=== PATIENT | female | born 1970 | race Asian ===

== ENCOUNTER 2020-03-13 03:43 | Emergency (ER) | payer SELFPAY ==
[~2020-03-13] VITALS: Ht 157.5 cm; Wt 63.5 kg
[2020-03-13 03:45] VITALS: BP 165/93
--- NOTE | 2020-03-13 03:50 | Emergency Room Report ---
History of Present Illness General Chief Complaint: Abdominal Pain Source: Patient Present Illness HPI Disclaimer: Please note that this report is being documented using [employer] technology. This can lead to erroneous entry secondary to incorrect interpretation by the dictating instrument. HPI: 49-year-old female with history of hyperthyroidism status post thyroidectomy presents for evaluation of epigastric pain. Patient is primarily Y[place] speaking and history and physical were performed with the use of an presser and blocker knitted goods. States she ate some [place] food last night after which she developed abdominal discomfort that intensified through the evening and early this morning. Now currently 04/13. Denies nausea, vomiting, diarrhea. Denies fever, chills, chest pain, shortness of breath, cough. Denies history of abdominal surgery. Denies prior history of gallbladder stones, pancreatic disease, alcohol use or drug use. PMH: Hyperthyroidism status post thyroidectomy PSH: Thyroidectomy Allergies: Denies Social Hx: Denies Allergies: Coded Allergies: No Known Allergies (Unverified , 03/13/20) COVID-19 Screening Contact w/high risk pt: No Experienced COVID-19 symptoms?: No COVID-19 Testing performed CERTIFIED REAL ESTATE APPRAISER: No Patient History Now: No Nursing Documentation-PMH Past Medical History: No Stated History Hx Neurological Problems: Yes - thyroidectomy Review of Systems All Other Systems: negative except mentioned in HPI Physical Exam Vital Signs Date Time Temp Pulse Resp B/P (MAP) Pulse Ox O2 Delivery O2 Flow Rate FiO2 03/13/20 03:40 98.1 63 17 172/97 (122) 98 Room Air General: Awake and alert, no acute distress HEENT: NC/AT. EOMI. Cardiovascular: RRR. S1 and S2 normal. No murmur appreciated Resp: Normal work of breathing. No cough, wheezing or crackles appreciated Abdomen: Abdomen is soft, nondistended. Tender palpation in the epigastrium. Mild tenderness in the left and right upper quadrants. No rebound. Negative Navarro's. No masses palpable. No tenderness in lower quadrants. Skin: Intact. No abrasions, laceration or rash over the exposed skin MSK: Normal tone and bulk. Moving all extremities. No obvious deformity. Neuro: Awake and alert. Mentating appropriately. Medical Decision Making Diagnostic Impression: Primary Impression: Gastritis Additional Impression: UTI (urinary tract infection) ER Course Is a 49-year-old female presenting for evaluation of abdominal pain. Differential includes not limited to gastritis, gastroenteritis, peptic ulcer disease, cholecystitis, hepatitis, pancreatitis, nephrolithiasis among others. Labs were obtained and patient was treated with famotidine and GI cocktail. Pain resolved on reexamination and therefore I do not believe the patient requires emergent imaging at this time. CBC and chemistry within normal limits as is lipase. Urinalysis shows evidence of urinary tract infection, nitrite positive. Patient treated with ceftriaxone in the and will be discharged on Macrobid. We will also start patient on Pepcid for 1 month. Counseled on food choices. She is to follow-up with her PMD and return with new or worsening symptoms. She understands agrees with this treatment plan. Laboratory Tests Test 03/13/20 03:00 03/13/20 03:50 Urine Color Pale yellow Urine Appearance Slightly cloudy Urine pH 7 (4.5-8.0) Urine Specific [place] 1.010 (1.005-1.035) Urine Protein Negative (NEGATIVE) Urine Glucose (UA) Negative (NEGATIVE) Urine Ketones 3+ (NEGATIVE) H Urine Blood 1+ (NEGATIVE) H Urine Nitrite Positive (NEGATIVE) H Urine Bilirubin Negative (NEGATIVE) Urine Urobilinogen Normal MG/DL (0.0-1.0) Urine Leukocyte Esterase 2+ (NEGATIVE) H Urine RBC 0-2 /HPF (0 - 2) Urine WBC 15-20 /HPF (0 - 2) H Urine Squamous Epithelial Cells Few /LPF (NONE/OCC) Urine Bacteria Moderate /HPF (NONE) H Urine HCG, Qualitative Negative (NEGATIVE) White Blood Count 9.6 K/UL (4.8-10.8) Red Blood Count 4.46 M/UL (4.20-5.40) Hemoglobin 15.0 G/DL (12.0-16.0) Hematocrit 44.5 % (37.0-47.0) Mean Corpuscular Volume 100 FL (80-99) H Mean Corpuscular Hemoglobin 33.7 PG (27.0-31.0) H Mean Corpuscular Hemoglobin Concent 33.8 G/DL (32.0-36.0) Red Cell Distribution Width 11.5 % (11.6-14.8) L Platelet Count 290 K/UL (150-450) Mean Platelet Volume 5.7 FL (6.5-10.1) L Neutrophils (%) (Auto) 72.4 % (45.0-75.0) Lymphocytes (%) (Auto) 20.0 % (20.0-45.0) Monocytes (%) (Auto) 6.5 % (1.0-10.0) Eosinophils (%) (Auto) 0.2 % (0.0-3.0) Basophils (%) (Auto) 0.9 % (0.0-2.0) Sodium Level 141 MMOL/L (136-145) Potassium Level 3.5 MMOL/L (3.5-5.1) Chloride Level 104 MMOL/L (98-107) Carbon Dioxide Level 26 MMOL/L (21-32) Anion Gap 11 mmol/L (5-15) Blood Urea Nitrogen 15 mg/dL (7-18) Creatinine 0.7 MG/DL (0.55-1.30) Estimated Glomerular Filtration Rate > 60 mL/min (>60) Glucose Level 137 MG/DL (74-106) H Calcium Level 8.8 MG/DL (8.5-10.1) Total Bilirubin 0.5 MG/DL (0.2-1.0) Aspartate Amino Transferase (AST) 29 U/L (15-37) Alanine Aminotransferase (ALT) 32 U/L (12-78) Alkaline Phosphatase 59 U/L (46-116) Total Protein 7.5 G/DL (6.4-8.2) Albumin 4.0 G/DL (3.4-5.0) Globulin 3.5 g/dL Albumin/Globulin Ratio 1.1 (1.0-2.7) Lipase 90 U/L (73-393) Last Vital Signs Date Time Temp Pulse Resp B/P (MAP) Pulse Ox O2 Delivery O2 Flow Rate FiO2 03/13/20 03:40 98.1 63 17 172/97 (122) 98 Room Air Disposition: HOME, SELF-CARE Condition: Improved Scripts Famotidine* (Pepcid 20mg tablet*) 20 Mg Tablet 20 MG ORAL DAILY, #30 TAB 0 Refills Prov: Nahun Chavira MD 03/13/20 Nitrofurantoin Monohyd/M-Cryst* (MACROBID 100 MG*) 100 Mg Capsule 100 MG ORAL EVERY 12 HOURS for 5 Days, #10 CAP Prov: Nahun Chavira MD 03/13/20 Nahun Chavira MD Mar 13, 2020 03:50
[2020-03-13] MEDS ORDERED: Mylanta II UD 30ml ORAL ONE (04:00)
[2020-03-13] MEDS ORDERED: Dicyclomine HCl 10mg/5ml oral soln ORAL ONE (04:00)
[2020-03-13] MEDS ORDERED: Lidocaine 2% Visc 15ml soln ORAL ONE (04:00)
[2020-03-13 04:06] LABS: BASOPHILS % (AUTO) 0.9 % (0.0-2.0); EOSINOPHILS % (AUTO) 0.2 % (0.0-3.0); HEMATOCRIT 44.5 % (37.0-47.0); MEAN CORPUSCULAR VOLUME 100 FL (80-99); MONOCYTES % (AUTO) 6.5 % (1.0-10.0); NEUTROPHILS % (AUTO) 72.4 % (45.0-75.0); PLATELET COUNT 290 K/UL (150-450); RED BLOOD COUNT 4.46 M/UL (4.20-5.40); RED CELL DISTRIBUTION WIDTH 11.5 % (11.6-14.8); WHITE BLOOD COUNT 9.6 K/UL (4.8-10.8)
[2020-03-13 04:18] LABS: ANION GAP 11 mmol/L (5-15); BLOOD UREA NITROGEN 15 mg/dL (7-18); CALCIUM 8.8 MG/DL (8.5-10.1); CARBON DIOXIDE 26 MMOL/L (21-32); CHLORIDE 104 MMOL/L (98-107); CREATININE 0.7 MG/DL (0.55-1.30); POTASSIUM 3.5 MMOL/L (3.5-5.1); SODIUM 141 MMOL/L (136-145)
[2020-03-13 04:24] LABS: BILIRUBIN, URINE NEGATIVE (NEGATIVE); COLOR,URINE PALE YELLOW; GLUCOSE, URINE (UA) NEGATIVE (NEGATIVE); KETONES,URINE 3+ (NEGATIVE); LEUKOCYTE ESTERASE ,URINE 2+ (NEGATIVE); NITRITE,URINE POSITIVE (NEGATIVE); PH,URINE 7 (4.5-8.0); PROTEIN,URINE NEGATIVE (NEGATIVE); UROBILINOGEN,URINE NORMAL MG/DL (0.0-1.0)
[2020-03-13 04:25] LABS: ALANINE AMINOTRANSFERASE 32 U/L (12-78); ALBUMIN/GLOBULIN RATIO 1.1 (1.0-2.7); ALKALINE PHOSPHATASE 59 U/L (46-116); ASPARTATE AMINO TRANSFERASE 29 U/L (15-37); BILIRUBIN,TOTAL 0.5 MG/DL (0.2-1.0)
[2020-03-13 04:37] LABS: APPEARANCE,URINE SLIGHTLY CLOUDY
[2020-03-13] MEDS ORDERED: FAMOTIDINE20 MG ORAL (04:43)
[2020-03-13] MEDS ORDERED: NITROFURANTOIN100 M2 ORAL (04:43)
[2020-03-13] MEDS ORDERED: cefTRIAXone 1 GM in NS 55 ML IVPB ONE (04:45)
[2020-03-13 05:09] VITALS: BP 137/76
[2020-03-13 05:10] VITALS: BP 137/76
== END 2020-03-13 05:10 | disposition home or self-care (01) ==
LOC: EDBD 03:43 → EMR 03:58
DX: K29.70 Gastritis, unspecified, without bleeding (principal); N39.0 Urinary tract infection, site not specified; E89.0 Postprocedural hypothyroidism
CPT/HCPCS: 36415; 80053; 81003; 81025; 83690; 85025; 87086; 87181; 96365; 96375; 99284; J0696; J2405; S0028